=== PATIENT | female | born 1995 | race African-American/Black ===

== ENCOUNTER 2023-06-15 18:50 | Emergency (ER) | payer SELFPAY ==
[2023-06-15 18:59] VITALS: BP 126/66; PULSE 87; RESP 18; TEMP 98.4; BMI 37.2
[2023-06-15 20:00] LABS: HEMATOCRIT 38.3 % (32.4-45.2); HEMOGLOBIN 12.5 G/dL (10.7-15.3); MCH 28.6 pg (25.7-33.7); MCHC 32.6 g/dl (32.0-36.0); MEAN CELL VOLUME 87.6 fl (80-96); MEAN PLT VOLUME 7.7 fl (7.5-11.1); PLATELET COUNT 295.2 10^3/uL (134-434); RBC 4.37 10^6/uL (3.60-5.2); RDW 14.2 % (11.6-15.6); WHITE BLOOD COUNT 7.1 10^3/uL (4.0-10.8)
[2023-06-15 20:21] LABS: ALBUMIN 3.9 g/dl (3.4-5.0); BILIRUBIN,TOTAL 0.6 mg/dl (0.2-1); CALCIUM 9.2 mg/dl (8.5-10.1); CREATININE 0.8 mg/dl (0.6-1.3); POTASSIUM 3.5 mmol/L (3.5-5.1); TOT PROT 6.7 g/dl (6.4-8.2)
[2023-06-15 20:24] LABS: PLATELET ESTIMATE SLT INCREASE
== END 2023-06-15 22:03 | disposition home or self-care (01) ==
LOC: FER 18:50
DX: M79.89 Other specified soft tissue disorders (principal)
CPT/HCPCS: 36415; 80053; 84443; 85025; 85379; 99283-25